=== PATIENT | female | born 1940 | race African-American/Black ===

== ENCOUNTER 2018-03-12 08:02 | Emergency (ER) | payer OTHER, MEDICAID ==
[~2018-03-12] VITALS: Ht 154.9 cm; Wt 68.0 kg
[2018-03-12 08:06] VITALS: Ht 154.9 cm; Wt 68.0 kg
[2018-03-12 12:01] VITALS: BP 150/81
== END 2018-03-12 12:01 | disposition home or self-care (01) ==
LOC: ED 08:02
DX: M46.1 Sacroiliitis, not elsewhere classified (principal); I10 Essential (primary) hypertension
CPT/HCPCS: 20552; J3301; J3490; Q0092

== ENCOUNTER 2019-03-30 19:25 | Emergency (ER) | payer OTHER, MEDICAID ==
[~2019-03-30] VITALS: Ht 154.9 cm; Wt 65.3 kg
[2019-03-30 19:29] VITALS: Ht 154.9 cm; Wt 65.3 kg
[2019-03-30 20:28] LABS: BASOPHIL % 0.5 % (0-2); PLATELET COUNT 189 x10^3mcL (130-400); RED CELL DISTRIBUTION WIDTH 13.4 % (11.5-14.5)
[2019-03-30 20:40] LABS: CARBON DIOXIDE 32.2 mmol/L (21-32); CHLORIDE SERUM 104 mmol/L (98-107); CREATININE SERUM 0.9 mg/dL (0.6-1.0); GLUCOSE SERUM 89 mg/dL (74-106); POTASSIUM SERUM 4.9 mmol/L (3.5-5.1); SODIUM SERUM 143 mmol/L (136-145)
[2019-03-30 20:41] LABS: CALCIUM 9.9 mg/dL (8.5-10.1)
[2019-03-30 21:42] VITALS: BP 174/72
== END 2019-03-30 21:42 | disposition home or self-care (01) ==
LOC: ED 19:25
PROVIDERS: Emergency Medicine
DX: R51 Headache (principal); I10 Essential (primary) hypertension; E78.00 Pure hypercholesterolemia, unspecified
CPT/HCPCS: 36415

== ENCOUNTER 2019-04-15 12:52 | Emergency (ER) | payer OTHER, MEDICAID ==
[~2019-04-15] VITALS: Ht 175.3 cm; Wt 62.6 kg
[2019-04-15 13:02] VITALS: Ht 175.3 cm; Wt 62.6 kg
[2019-04-15 16:00] VITALS: BP 153/58
== END 2019-04-15 16:00 | disposition home or self-care (01) ==
LOC: ED 12:52
DX: I16.0 Hypertensive urgency (principal); E78.00 Pure hypercholesterolemia, unspecified

== ENCOUNTER 2019-06-04 16:20 | Emergency (ER) | payer OTHER, MEDICAID ==
[~2019-06-04] VITALS: Ht 154.9 cm; Wt 64.9 kg
[2019-06-04 16:38] VITALS: Ht 154.9 cm; Wt 64.9 kg
[2019-06-04 17:43] LABS: BASOPHIL % 0.3 % (0-2); PLATELET COUNT 212 x10^3mcL (130-400)
[2019-06-04 17:46] LABS: RED CELL DISTRIBUTION WIDTH 15.5 % (11.5-14.5)
[2019-06-04 17:56] LABS: CALCIUM 9.2 mg/dL (8.5-10.1); CARBON DIOXIDE 25.8 mmol/L (21-32); CHLORIDE SERUM 105 mmol/L (98-107); CREATININE SERUM 0.8 mg/dL (0.6-1.0); GLUCOSE SERUM 107 mg/dL (74-106); POTASSIUM SERUM 3.2 mmol/L (3.5-5.1); SODIUM SERUM 144 mmol/L (136-145)
[2019-06-04 18:01] LABS: ALBUMIN 4.5 g/dL (3.4-5.0); ALKALINE PHOSPHATASE 83 U/L (46-116); ALT/SGPT 21 U/L (14-59); AST/SGOT 16 U/L (15-37); BILIRUBIN TOTAL 0.4 mg/dL (0.20-1.00); TOTAL PROTEIN, SERUM 8.9 g/dL (6.4-8.2)
[2019-06-04 19:46] VITALS: BP 150/71
== END 2019-06-04 19:46 | disposition home or self-care (01) ==
LOC: ED 16:20
PROVIDERS: Emergency Medicine
DX: R51 Headache (principal); G47.00 Insomnia, unspecified; F41.9 Anxiety disorder, unspecified; I10 Essential (primary) hypertension; E78.00 Pure hypercholesterolemia, unspecified
CPT/HCPCS: 36415; 83880; 87804; Q0092; U0002